=== PATIENT | female | born 1965 | race Caucasian/White ===

== ENCOUNTER → 2023-11-05 | Outpatient (CLI) | payer BC ==
[~2023-11-05] MED LIST: CATAPRES0.2 MG PO; DYRENIUM100 MG; FEROSUL325 MG; Iohexol 300 - 10 ML VIAL ONE; Lidocaine PF 2% (20 MG/ML) 2 ML VIAL ONE; NORCO 325 MG-51 TAB PO; NORVASC 5MG5 MG/TAB; SYNTHROID0.088 MG/T; SYNTHROID0.1 MG/TAB; TOPROL XL 50MG50 MG; VASOTEC20 MG; ZYRTEC 10MG10 MG
== END ==
LOC: MHCPAIN 10:41
DX: M47.817 Spondylosis without myelopathy or radiculopathy, lumbosacral region (principal); M54.16 Radiculopathy, lumbar region
CPT/HCPCS: J1100; Q9967

== ENCOUNTER → 2024-01-05 | Outpatient (CLI) | payer BC ==
[~2024-01-05] MED LIST changes: -Iohexol 300 - 10 ML VIAL ONE; -Lidocaine PF 2% (20 MG/ML) 2 ML VIAL ONE
== END ==
LOC: MHCPAIN 11:15
DX: M51.16 Intervertebral disc disorders with radiculopathy, lumbar region (principal); M48.062 Spinal stenosis, lumbar region with neurogenic claudication; M17.0 Bilateral primary osteoarthritis of knee; E66.01 Morbid (severe) obesity due to excess calories
CPT/HCPCS: G0463

== ENCOUNTER → 2024-03-22 | Outpatient (CLI) | payer BC | LOC: COL.RAD 11:25 | DX: M19.012 Primary osteoarthritis, left shoulder (principal); M19.011 Primary osteoarthritis, right shoulder ==

== ENCOUNTER → 2024-07-18 | Outpatient (CLI) | payer BC, OTHER ==
[~2024-07-18] MED LIST changes: +Lidocaine PF 1% (10 MG/ML) 5 ML VIAL ONE; +Triamcinolone 40 MG/ML 1 ML VIAL ONE
== END ==
LOC: MHCPAIN 12:51
DX: M13.811 Other specified arthritis, right shoulder (principal); M25.511 Pain in right shoulder; M13.812 Other specified arthritis, left shoulder; M25.512 Pain in left shoulder
CPT/HCPCS: J3301

== ENCOUNTER → 2024-09-20 | Outpatient (CLI) | payer BC, OTHER ==
[~2024-09-20] MED LIST changes: -Lidocaine PF 1% (10 MG/ML) 5 ML VIAL ONE; -Triamcinolone 40 MG/ML 1 ML VIAL ONE
== END ==
LOC: MHCPAIN 10:24
DX: M51.16 Intervertebral disc disorders with radiculopathy, lumbar region (principal); M48.062 Spinal stenosis, lumbar region with neurogenic claudication; M17.0 Bilateral primary osteoarthritis of knee; E66.01 Morbid (severe) obesity due to excess calories; M25.511 Pain in right shoulder; M25.512 Pain in left shoulder
CPT/HCPCS: G0463